=== PATIENT | female | born 1945 | race Caucasian/White ===

== ENCOUNTER 2023-02-07 11:09 | Emergency (ER) | payer MEDICARE, OTHER, SELFPAY ==
[2023-02-07] VITALS (23 sets, daily range): BP systolic 120–169; BP diastolic 54–107; PULSE 68–99; TEMP 36.1; O2SAT 92–97; BMI 29.9
--- NOTE | 2023-02-07 11:34 | ED.CHESTPAIN ---
HPI - Chest Pain General Chief Complaint: Chest Pain Stated Complaint: chest pains Time Seen by Provider: 02/07/23 11:17 Source: patient Mode of arrival: ambulatory Limitations: no limitations History of Present Illness HPI narrative: 76-year-old female coming in today complaining of right-sided chest pain arm pain that is been going on since the middle of the night. She states she was lying in bed doing her puzzles when the discomfort started. She states that she feels it in the center of the right chest any radiates to the center of the chest and then to the shoulder and into the upper right arm. Movement makes it worse. Staying still makes it better. She denies shortness of breath, diaphoresis or feeling lightheaded. She denies any recent illness. She denies any recent travel. She denies any med changes. Related Data Home Medications Medication Instructions Recorded Confirmed aspirin 81 mg tablet,delayed 81 mg PO DAILY 02/07/23 02/07/23 release (Adult Low Dose Aspirin) atorvastatin 20 mg tablet 20 mg PO DAILY 02/07/23 02/07/23 cholecalciferol (vitamin D3) .ROUTE 02/07/23 darifenacin 15 mg tablet,extended 15 mg PO DAILY 02/07/23 02/07/23 release 24 hr famotidine 40 mg tablet 40 mg PO DAILY 02/07/23 02/07/23 levothyroxine 75 mcg tablet 75 mcg PO DAILY 02/07/23 02/07/23 lisinopril 5 mg tablet 5 mg PO DAILY 02/07/23 02/07/23 metformin 500 mg tablet 500 mg PO BID 02/07/23 02/07/23 montelukast 10 mg tablet 10 mg PO DAILY 02/07/23 02/07/23 Allergies Allergy/AdvReac Type Severity Reaction Status Date / Time No Known Drug Allergies Allergy Verified 02/07/23 11:26 Review of Systems Status of ROS Reports: 10 or more systems reviewed and unremarkable except as noted in History and below [facility] Social History Smoking Status: Never smoker Do you use any of these nicotine containing products: None How often do you have a drink containing alcohol: monthly or less AUDIT-C Alcohol total score: 1 Non-prescribed substance use: denies use Exam Narrative Exam Narrative: Well-nourished well-developed patient in no acute distress. Alert and oriented. Answers questions appropriately. Mood and affect are appropriate. Thoughts are goal oriented and rational. No tangential or magical thinking noted. Patient speaks in full sentences without needing to catch their breath. Speech is not slurred or pressured. HEENT: Normocephalic atraumatic. Pupils are equally round reactive to light. Extraocular muscles are intact. Conjunctivae are moist without any icterus noted. Moist mucous membranes. Posterior pharynx is normal. Neck is soft without any lymphadenopathy or thyromegaly. No masses are appreciated. Cardiovascular: Heart is regular rate and rhythm S1 and S2 are present without any murmurs. Lungs: Clear to auscultation bilaterally no wheezes rhonchi or rales are appreciated. Patient takes deep breaths without any discomfort. I can reproduce her discomfort to an extent by pushing on the right sternal border. Abdomen: Soft and nontender nondistended with normal bowel sounds. No guarding or rebound. Extremities: Bilateral lower extremities are without edema. Normal DP and PT pulses. Skin: Well perfused without any obvious rashes. Const Vital Signs, click to edit/add: Vital Signs - 24 hr 02/07/23 11:28 Temperature 97 F L Pulse Rate [Pulse Oximeter] 81 Blood Pressure [Right Upper Arm] 151/72 H Pulse Oximetry 94 Oxygen Delivery Method Room Air Course Course Hospital Course: We discussed the possibility of costochondritis or chest wall discomfort causing her pain, however we discussed ruling out life-threatening causes 1st therefore IV was established an EKG was done. EKG, read by me, shows normal sinus rhythm with a pulse of 73. Troponin was normal. Labs were unremarkable aside from elevated D-dimer. Because of this we did go ahead and proceed with a chest CT PE protocol and this was normal. Repeat EKG, read by me, was unchanged and a repeat troponin remained 0. Patient received Toradol for her discomfort while she was here which did help her symptoms. The longer she was here, the more clear it became that the pain really was aggravated by any small movement that required core strength. Vital Signs Vital signs: Initial Vital Signs Temperature 97 F L 02/07/23 11:28 Temperature Source Temporal Artery Scan 02/07/23 11:28 Pulse Rate 81 02/07/23 11:28 Blood Pressure 151/72 H 02/07/23 11:28 Blood Pressure Mean 98 02/07/23 11:28 Blood Pressure Position Semi-Fowlers 02/07/23 11:28 Pulse Oximetry 94 02/07/23 11:28 Oxygen Delivery Method Room Air 02/07/23 11:28 Vital Signs Temperature 97 F L 02/07/23 11:28 Pulse Rate 81 02/07/23 11:28 Blood Pressure 151/72 H 02/07/23 11:28 Pulse Oximetry 94 02/07/23 11:28 Oxygen Delivery Method Room Air 02/07/23 11:28 Temperature 97 F L 02/07/23 11:28 Pulse Rate 81 02/07/23 11:28 Blood Pressure 151/72 H 02/07/23 11:28 Pulse Oximetry 94 02/07/23 11:28 Oxygen Delivery Method Room Air 02/07/23 11:28 MDM - Chest Pain MDM Narrative Medical decision making narrative: 77-year-old female with chest wall pain. We discussed costochondritis, pulled muscle. Upon further conversation patient tells me that she has been doing a lot of packing of boxes and she has been more physically active than normal. We discussed symptomatic treatment with pain medications, heating pad. We discussed reasons for follow-up. Patient was in agreement and had no other questions. Medical Records Data Attestation: I reviewed the patient's medical records. Lab Data Attestation: I reviewed the patient's lab results. Labs: Lab Results 02/07/23 02/07/23 Range/Units 13:26 15:15 WBC 7.07 (4.50-11.00) K/uL RBC 3.86 L (4.00-5.20) m/uL Hgb 10.6 L (12.0-16.0) gm/dL Hct 32.9 L (33.0-51.0) % MCV 85 (80-100) fL MCH 28 (26-34) pg MCHC 32 (32-36) gm/dL RDW Coeff of Cleve 13.8 (11.5-15.5) % Plt Count 437 (140-440) K/uL Neut % (Auto) 66.3 (42.0-72.0) % Lymph % (Auto) 24.0 (20-44) % [place] % (Auto) 5.8 (0.0-11.0) % Eos % (Auto) 2.4 (0.0-7.0) % Baso % (Auto) 1.1 (0.0-3.0) % Neut # (Auto) 4.68 (1.7-7.0) K/uL Lymph # (Auto) 1.70 (0.90-2.90) K/uL [place] # (Auto) 0.40 (0.00-0.90) K/UL Eos # (Auto) 0.17 (0.00-0.50) K/uL Baso # (Auto) 0.08 (0.00-0.30) K/uL Abs Immat Gran (auto) 0.03 (0.00-0.30) K/uL Imm/Tot Granulo (auto) 0.4 % ESR 12 (2-20) mm/hr D-Dimer Quant (PE/DVT) 0.94 H (0.00-0.50) ug/ml Sodium 132 L (135-149) mmol/L Potassium 4.2 (3.6-5.1) mmol/L Chloride 101 (96-114) mmol/L Carbon Dioxide 26 (20-32) mmol/L BUN 14 (7-30) mg/dL Creatinine 0.8 (0.5-1.5) mg/dL Estimated Creat Clear 34.42 Estimated GFR 75 ml/min Glucose 97 (60-115) mg/dL Calcium 8.9 (8.4-10.6) mg/dL Total Bilirubin 0.4 (0.1-1.5) mg/dL Direct Bilirubin 0.0 (0.0-0.5) mg/dL AST 21 (12-35) U/L ALT 17 (4-35) U/L Alkaline Phosphatase 93 (40-150) U/L Troponin I < 0.01 L (0.01-0.04) ng/mL C-Reactive Protein < 0.5 L (0.5-1.0) mg/dL Total Protein 6.7 (6.0-8.3) g/dL Albumin 4.1 (3.3-5.0) g/dL Lipase 181 (23-300) U/L POC Troponin I 0.00 L 0.00 L (0.01-0.04) ng/ml Imaging Data CT scan - chest: Attestation: I have reviewed the pertinent imaging results. Radiologist's impression: CT chest PE was acquired with 95 cc Isovue 370 IV contrast. COMPARISON: None FINDINGS: Pulmonary Arteries: No CT evidence of pulmonary thromboembolic disease. No pulmonary hypertension or right ventricular strain. Heart and Mediastinum: The visualized portions of the thyroid are normal. No axillary or supraclavicular lymphadenopathy. No mediastinal, hilar or retrocrural lymphadenopathy. Normal heart size. Normal caliber aorta. Atherosclerotic calcifications. Trace pericardial fluid. Lungs and Airways: Bibasilar subsegmental atelectasis. Upper lobe predominant centrilobular emphysema. Multiple calcified granulomas. No mass or consolidation. No endoluminal lesion. Pleura: The pleural spaces are normal. Abdomen: The visualized upper abdominal organs are unremarkable. Bones and soft tissues: Multilevel thoracic spondylosis. IMPRESSION: 1. No CT evidence of pulmonary thromboembolic disease. 2. No intrathoracic mass or consolidation. 3. Emphysema. ECG Data Attestation: I personally reviewed and interpreted this ECG as follows: Discharge Plan Discharge Clinical Impression: Acute chest wall pain Patient Disposition: Home, Self-Care Condition: Stable Additional Instructions: Your workup today did not reveal any internal causes of your pain. Your pain is likely caused by pulled muscles of the chest wall or by a small inflammation of the joints between the breast bone and the ribs. I recommend you take Tylenol as needed, and use a heating pad to the chest wall. Do not apply heat directly to the skin. I will send you home with a couple of tablets for narcotic pain medication-be very careful when taking these as these medications do increase your risk of fall. The also cause significant constipation. Follow-up with your primary care doctor as needed. Turn to the ER if you feel like your pain is getting worse instead of better. Meds send to [facility] Prescriptions: No Action metformin 500 mg tablet 500 mg PO BID cholecalciferol (vitamin D3) .ROUTE aspirin [Adult Low Dose Aspirin] 81 mg tablet,delayed release (DR/EC) 81 mg PO DAILY atorvastatin 20 mg tablet 20 mg PO DAILY famotidine 40 mg tablet 40 mg PO DAILY levothyroxine 75 mcg tablet 75 mcg PO DAILY lisinopril 5 mg tablet 5 mg PO DAILY montelukast 10 mg tablet 10 mg PO DAILY darifenacin 15 mg tablet extended release 24 hr 15 mg PO DAILY Stand Alone Forms: [employer] Info Instructions
[2023-02-07 13:38] LABS: Basophils Absolute Auto 0.08 K/uL (0.00-0.30); Basophils Percent Auto 1.1 % (0.0-3.0); Eosinophils Absolute Auto 0.17 K/uL (0.00-0.50); Eosinophils Percent Auto 2.4 % (0.0-7.0); Hematocrit 32.9 % (33.0-51.0); Hemoglobin* 10.6 gm/dL (12.0-16.0); Immature Granulocytes Abs Auto 0.03 K/uL (0.00-0.30); Immature Granulocytes Pct Auto 0.4 %; Mean Corpuscular HGB Conc 32 gm/dL (32-36); Mean Corpuscular Hemoglobin 28 pg (26-34); Mean Corpuscular Volume 85 fL (80-100); Monocytes Percent Auto 5.8 % (0.0-11.0); Neutrophils Absolute Auto 4.68 K/uL (1.7-7.0); Neutrophils Percent Auto 66.3 % (42.0-72.0); Platelet Count* 437 K/uL (140-440); RDW Coefficient of Variation % 13.8 % (11.5-15.5); Red Blood Count 3.86 m/uL (4.00-5.20); White Blood Count* 7.07 K/uL (4.50-11.00)
[2023-02-07 13:42] LABS: Slide Review Reflex No
[2023-02-07 13:58] LABS: Albumin* 4.1 g/dL (3.3-5.0); Chloride* 101 mmol/L (96-114)
[2023-02-07 13:59] LABS: Potassium* 4.2 mmol/L (3.6-5.1); Sodium* 132 mmol/L (135-149)
[2023-02-07 14:01] LABS: Aspartate Amino Transferase* 21 U/L (12-35); Bilirubin Total* 0.4 mg/dL (0.1-1.5); Carbon Dioxide* 26 mmol/L (20-32); Creatinine* 0.8 mg/dL (0.5-1.5); Est. Creatinine Clearance* 34.42; Estimated Glomerular Filt Rate 75 ml/min; Total Protein* 6.7 g/dL (6.0-8.3)
[2023-02-07 14:02] LABS: Alanine Aminotransferase* 17 U/L (4-35); Alkaline Phosphatase* 93 U/L (40-150); Blood Urea Nitrogen* 14 mg/dL (7-30); Calcium* 8.9 mg/dL (8.4-10.6); D Dimer Quantitative* 0.94 ug/ml (0.00-0.50); Glucose* 97 mg/dL (60-115); Lipase* 181 U/L (23-300)
[2023-02-07 14:08] LABS: C Reactive Protein* < 0.5 mg/dL (0.5-1.0)
[2023-02-07 14:16] LABS: Troponin I* < 0.01 ng/mL (0.01-0.04)
--- NOTE | 2023-02-07 14:24 | CRLHL7_ITS ---
For Patients: As a result of the Century Cures Act, medical imaging exams and procedure reports are released immediately into your electronic medical record. You may view this report before your referring provider. If you have questions, please contact your health care provider. INDICATION: .Chest pain from right shoulder across chest, elevated D-dimer TECHNIQUE: CT chest PE was acquired with 95 cc Isovue 370 IV contrast. COMPARISON: None FINDINGS: Pulmonary Arteries: No CT evidence of pulmonary thromboembolic disease. No pulmonary hypertension or right ventricular strain. Heart and Mediastinum: The visualized portions of the thyroid are normal. No axillary or supraclavicular lymphadenopathy. No mediastinal, hilar or retrocrural lymphadenopathy. Normal heart size. Normal caliber aorta. Atherosclerotic calcifications. Trace pericardial fluid. Lungs and Airways: Bibasilar subsegmental atelectasis. Upper lobe predominant centrilobular emphysema. Multiple calcified granulomas. No mass or consolidation. No endoluminal lesion. Pleura: The pleural spaces are normal. Abdomen: The visualized upper abdominal organs are unremarkable. Bones and soft tissues: Multilevel thoracic spondylosis. IMPRESSION: 1. No CT evidence of pulmonary thromboembolic disease. 2. No intrathoracic mass or consolidation. 3. Emphysema. Please note that all CT scans at this facility use dose modulation, iterative reconstruction, and/or weight-based dosing when appropriate to reduce radiation dose to as low as reasonably achievable. Dictated by Harpreet Paulson MD @ 02/07/2023 4:10:52 PM (Electronically Signed)
[2023-02-07 14:43] LABS: Erythrocyte SedimentationRate* 12 mm/hr (2-20)
[2023-02-07] MEDS: 0.9 % SODIUM CHLORIDE 500 ML 500 ML IV (15:31)
[2023-02-07] MEDS: KETOROLAC 30 MG/ML inj IVP (16:11)
== END 2023-02-07 16:56 | disposition home or self-care (01) ==
PROVIDERS: Emergency Provider Family Medicine
DX: R07.89 Other chest pain (principal)
CPT/HCPCS: 36415; 71260; 80048; 80076; 83690; 84484; 85025; 85379; 85651; 86140; 93005; 94761; 96361; 96374; 99284; 99285; J1885; J7120; Q9967

== ENCOUNTER 2024-04-18 08:33 | Emergency (ER) | payer MEDICARE, OTHER, SELFPAY ==
[2024-04-18 08:38] VITALS: BP 149/73; PULSE 103; RESP 16; TEMP 36.2; O2SAT 97; BMI 29.3
--- NOTE | 2024-04-18 08:59 | ED_ITS ---
HPI - Chest Pain General Chief Complaint: Chest Pain Stated Complaint: chest pains, shakey Time Seen by Provider: 04/18/24 08:44 History of Present Illness HPI narrative: This 78-year-old female comes in reporting chest discomfort that began upon awakening this morning. She reports the pain in her sternal area and the lower aspect. She did not have any nausea, vomiting, shortness of breath. She does report some lightheadedness and states that she got sweaty. She also reports some chest discomfort 3 days ago where she did have nausea and a vomiting episode. She does not report any exercise intolerance. These symptoms occurred without any particular strenuous activity. Currently she feels much better. She states that the pain is not reproducible when taking a deep breath or with certain movements or palpating along her lower sternum. She does not have history of hypertension her hyperlipidemia but does state that she has diabetes. Related Data Home Medications ?Medication ?Instructions ?Recorded ?Confirmed atorvastatin 20 mg tablet 20 mg PO DAILY 02/07/23 04/18/24 cholecalciferol (vitamin D3) .ROUTE 02/07/23 darifenacin 15 mg tablet,extended 15 mg PO DAILY 02/07/23 04/18/24 release 24 hr famotidine 40 mg tablet 40 mg PO DAILY 02/07/23 04/18/24 levothyroxine 75 mcg tablet 75 mcg PO DAILY 02/07/23 04/18/24 lisinopril 5 mg tablet 5 mg PO DAILY 02/07/23 04/18/24 metformin 500 mg tablet 500 mg PO BID 02/07/23 04/18/24 montelukast 10 mg tablet 10 mg PO DAILY 02/07/23 04/18/24 omeprazole 40 mg capsule,delayed 40 mg PO DAILY 04/18/24 04/18/24 release Previous Rx's ?Medication ?Instructions ?Recorded omeprazole 40 mg capsule,delayed 40 mg PO DAILY #30 caps 04/18/24 release Allergies Allergy/AdvReac Type Severity Reaction Status Date / Time No Known Drug Allergies Allergy Verified 02/07/23 11:26 Review of Systems Status of ROS Reports: 10 or more systems reviewed and unremarkable except as noted in History and below Narrative Constitutional: No fevers, no weight gain or loss. Eyes: No discharge. No vision changes. HENT: No congestion, no sore throat, no ear pain. Cardiovascular: No palpitations. Respiratory: No shortness of breath, no wheezes, no cough. Gastrointestinal: No abdominal pain, no diarrhea. Genitourinary: No dysuria, no hematuria. Musculoskeletal: Normal range of motion. Skin: No rashes, no pruritis. Neurological: No dizziness, weakness, sensory change, speech change. Endo/Heme/Allergies: No bruising or bleeding. No polydipsia. Pysch: no suicidality, no anxiety, no insomnia. All other systems reviewed and are negative. [facility] Social History Smoking Status: Never smoker Do you use any of these nicotine containing products: None How often do you have a drink containing alcohol: monthly or less AUDIT-C Alcohol total score: 1 Non-prescribed substance use: denies use Exam Narrative Exam Narrative: Constitutional: Well-developed, well-nourished, no acute distress. HEENT: Normocephalic, atraumatic. Neck: Normal range of motion. Nontender. Supple. Heart: Regular. No murmurs. Normal rate. Intact distal pulses. Lungs: Clear to auscultation. No chest discomfort. No wheezes, rhonchi, or rales. Abdomen: Normal bowel sounds. Nontender. No rebound tenderness. Genitalia: Deferred. Back: No midline tenderness. Normal range of motion. Extremities: Normal range of motion. No injury. Skin: Intact. No rash. Warm. No erythema or pallor. Neurologic: No altered sensation. No weakness. Alert and oriented. Psychiatric: No suicidality. No anxiety or depression. No insomnia. Nursing notes and vitals signs are reviewed. Const Vital Signs, click to edit/add: Vital Signs - 24 hr 04/18/24 08:38 04/18/24 09:14 04/18/24 09:15 Temperature 97.2 F L Pulse Rate [Pulse Oximeter] 103 H 72 Respiratory Rate 16 16 Blood Pressure [Right Upper Arm] 149/73 H 154/73 H Pulse Oximetry 97 95 95 Oxygen Delivery Method Room Air Room Air Course Vital Signs Vital signs: Initial Vital Signs Temperature 97.2 F L 04/18/24 08:38 Temperature Source Temporal Artery Scan 04/18/24 08:38 Pulse Rate 103 H 04/18/24 08:38 Respiratory Rate 16 04/18/24 08:38 Blood Pressure 149/73 H 04/18/24 08:38 Blood Pressure Mean 98 04/18/24 08:38 Blood Pressure Position Sitting 04/18/24 08:38 Pulse Oximetry 97 04/18/24 08:38 Oxygen Delivery Method Room Air 04/18/24 08:38 Vital Signs Temperature 97.2 F L 04/18/24 08:38 Pulse Rate 103 H 04/18/24 08:38 Respiratory Rate 16 04/18/24 08:38 Blood Pressure 149/73 H 04/18/24 08:38 Pulse Oximetry 97 04/18/24 08:38 Oxygen Delivery Method Room Air 04/18/24 08:38 Temperature 97.2 F L 04/18/24 08:38 Pulse Rate 72 04/18/24 09:15 Respiratory Rate 16 04/18/24 09:15 Blood Pressure 154/73 H 04/18/24 09:15 Pulse Oximetry 95 04/18/24 09:15 Oxygen Delivery Method Room Air 04/18/24 09:15 Medications Administered Medications: Discontinued Medications Generic Name Dose Route Start Last Admin Trade Name Rajanq PRN Reason Stop Dose Admin Aspirin 324 mg 04/18/24 08:57 04/18/24 09:04 Aspirin 81 Mg Tab.Chew PO 04/18/24 08:58 324 mg ONCE ONE Administration MDM - Chest Pain MDM Narrative Medical decision making narrative: This patient comes in with report of upper epigastric and lower chest pain that occurred with nausea and vomiting a few days ago. She awoke with similar symptoms by way of location this morning but did not have any nausea or vomiting. EKG is done and shows no ST or T-wave abnormalities. Additionally lab results returned with reassuring findings. Her troponin returns at 0. The patient does take famotidine and omeprazole and does have a history of reflux and heartburn symptoms. She thinks this is what is causing these current symptoms. She is okay to be discharged home. I did recommended increasing the dose of omeprazole and I provided prescription for extra tablets for her to do this. Lab Data Labs: Lab Results 04/18/24 04/18/24 Range/Units 08:57 09:04 WBC 7.07 (4.50-11.00) K/uL RBC 3.97 L (4.00-5.20) m/uL Hgb 9.0 L (12.0-16.0) gm/dL Hct 30.2 L (33.0-51.0) % MCV 76 L (80-100) fL MCH 23 L (26-34) pg MCHC 30 L (32-36) gm/dL RDW Coeff of Cleve 16.3 H (11.5-15.5) % Plt Count 499 H (140-440) K/uL Neut % (Auto) 66.5 (42.0-72.0) % Lymph % (Auto) 21.5 (20-44) % [place] % (Auto) 6.9 (0.0-11.0) % Eos % (Auto) 2.8 (0.0-7.0) % Baso % (Auto) 1.7 (0.0-3.0) % Neut # (Auto) 4.70 (1.7-7.0) K/uL Lymph # (Auto) 1.52 (0.90-2.90) K/uL [place] # (Auto) 0.50 (0.00-0.90) K/UL Eos # (Auto) 0.20 (0.00-0.50) K/uL Baso # (Auto) 0.12 (0.00-0.30) K/uL Abs Immat Gran (auto) 0.04 (0.00-0.30) K/uL Imm/Tot Granulo (auto) 0.6 % Sodium 135 (135-149) mmol/L Potassium 4.2 (3.6-5.1) mmol/L Chloride 102 (96-114) mmol/L Carbon Dioxide 21 (20-32) mmol/L Anion Gap 12 (7-15) mEq/L BUN 17 (7-30) mg/dL Creatinine 1.0 (0.5-1.5) mg/dL Estimated Creat Clear 35.49 Estimated GFR 57 ml/min Glucose 126 H (60-115) mg/dL Calcium 9.4 (8.4-10.6) mg/dL POC Troponin I 0.00 L (0.01-0.04) ng/ml ECG Data Attestation: I personally reviewed and interpreted this ECG as follows: Interpretation: Normal sinus rhythm. Rate is 87 beats per minute. There are no ST or T-wave abnormalities. There is poor R-wave progression in the precordial leads. Discharge Plan Discharge Clinical Impression: Atypical chest pain, Esophagitis, reflux Patient Disposition: Home, Self-Care Condition: Improved Additional Instructions: Okay to increase omeprazole to 2 tablets daily. Follow-up with primary physician for ongoing management. Return if worsening. Prescriptions: New omeprazole 40 mg capsule,delayed release(DR/EC) 40 mg PO DAILY Qty: 30 2RF No Action metformin 500 mg tablet 500 mg PO BID cholecalciferol (vitamin D3) .ROUTE atorvastatin 20 mg tablet 20 mg PO DAILY famotidine 40 mg tablet 40 mg PO DAILY levothyroxine 75 mcg tablet 75 mcg PO DAILY lisinopril 5 mg tablet 5 mg PO DAILY montelukast 10 mg tablet 10 mg PO DAILY darifenacin 15 mg tablet extended release 24 hr 15 mg PO DAILY omeprazole 40 mg capsule,delayed release(DR/EC) 40 mg PO DAILY Follow Up/Referrals: Provider,Not a Local [Non-Staff] - Stand Alone Forms: [employer] Info Instructions
[2024-04-18] MEDS: ASPIRIN 81 MG TAB.CHEW 324 MG PO (09:04)
[2024-04-18 09:13] LABS: Basophils Absolute Auto 0.12 K/uL (0.00-0.30); Basophils Percent Auto 1.7 % (0.0-3.0); Eosinophils Percent Auto 2.8 % (0.0-7.0); Hematocrit 30.2 % (33.0-51.0); Immature Granulocytes Abs Auto 0.04 K/uL (0.00-0.30); Immature Granulocytes Pct Auto 0.6 %; Lymphocytes Absolute Auto 1.52 K/uL (0.90-2.90); Lymphocytes Percent Auto 21.5 % (20-44); Mean Corpuscular HGB Conc 30 gm/dL (32-36); Mean Corpuscular Hemoglobin 23 pg (26-34); Mean Corpuscular Volume 76 fL (80-100); Monocytes Percent Auto 6.9 % (0.0-11.0); Neutrophils Percent Auto 66.5 % (42.0-72.0); Platelet Count* 499 K/uL (140-440); RDW Coefficient of Variation % 16.3 % (11.5-15.5); Red Blood Count 3.97 m/uL (4.00-5.20); White Blood Count* 7.07 K/uL (4.50-11.00)
[2024-04-18 09:14] VITALS: O2SAT 95
[2024-04-18 09:14] LABS: Slide Review Reflex No
[2024-04-18 09:15] VITALS: BP 154/73; PULSE 72; RESP 16; O2SAT 95
[2024-04-18 09:25] LABS: Chloride* 102 mmol/L (96-114); Potassium* 4.2 mmol/L (3.6-5.1); Sodium* 135 mmol/L (135-149)
[2024-04-18 09:27] LABS: Est. Creatinine Clearance* 35.49; Estimated Glomerular Filt Rate 57 ml/min
[2024-04-18 09:28] LABS: Anion Gap 12 mEq/L (7-15); Blood Urea Nitrogen* 17 mg/dL (7-30); Calcium* 9.4 mg/dL (8.4-10.6); Carbon Dioxide* 21 mmol/L (20-32); Glucose* 126 mg/dL (60-115)
[2024-04-18 10:40] VITALS: BP 149/79; PULSE 70; RESP 18; O2SAT 95
== END 2024-04-18 10:44 | disposition home or self-care (01) ==
PROVIDERS: Emergency Provider Emergency Medicine Emergency Medical Services; PCP Family Medicine
DX: R07.9 Chest pain, unspecified (principal); K21.00 Gastro-esophageal reflux disease with esophagitis, without bleeding
CPT/HCPCS: 36415; 80048; 84484; 85025; 93005; 94761; 99284; A9270

== ENCOUNTER 2025-02-01 14:25 | Outpatient (CLI) | payer MEDICARE, OTHER, SELFPAY | END 2025-02-01 14:26 | disposition home or self-care (01) | LOC: AMB 02-07 15:58 | PROVIDERS: PCP Family Medicine; Visit Provider Internal Medicine | DX: R56.9 Unspecified convulsions (principal); F03.90 Unspecified dementia, unspecified severity, without behavioral disturbance, psychotic disturbance, mood disturbance, and anxiety | CPT/HCPCS: A0425; A0433 ==